=== PATIENT | female | born 1980 | race Caucasian/White ===

== ENCOUNTER 2017-12-03 06:55 | Emergency (ER) | payer BC ==
[~2017-12-03 06:55] MED LIST: ALBU8.5H IH; CIT20 PO; DICL-195 PO; DOXY-179 PO; ERYT-80 PO; HYDR-4309 PO; KET10 PO; LOR5 PO; LOR5/325 PO; MONT10TA PO; SERT-1 PO
[2017-12-03] MEDS ORDERED: ONDANSETRON 4 MG/2 ML VIAL IVP ONE ×2 (07:15→07:25)
[2017-12-03] MEDS ORDERED: NS(*) 0.9% 1000 ML BAG 1,000 ML IV ONE ×2 (07:15→07:25)
[2017-12-03] MEDS ORDERED: fentaNYL CITR 100 MCG/2 ML AMP IVP ONE ×2 (07:15→07:25)
[2017-12-03 07:25] LABS: PLATELET COUNT, AUTOMATED 213 K/uL (150-450)
--- NOTE | 2017-12-03 07:31 | ER Report ---
History and Physical Time Seen By MD: 07:01 Hx. of Stated Complaint: patient reports that she was woken up about 0230 this morning not able to breathe HPI/ROS CHIEF COMPLAINT: Right sided abdominal pain HISTORY OF PRESENT ILLNESS: 37-year-old female denies medical problems except " 1 prior blood clot, in the ankle" status post cholecystectomy 2007 in [place] presents with right upper quadrant abdominal pain worse with a deep breath radiates to the back sharp in nature and acute onset at 2 AM awoke her from sleep. She denies associated symptoms including nausea vomiting diarrhea cough fever chills or chest pain. REVIEW OF SYSTEMS: Constitutional: No fever, no chills. Eyes: No discharge. ENT: No sore throat. Cardiovascular: No chest pain, no palpitations. Respiratory: No cough, no shortness of breath. Gastrointestinal: No abdominal pain, no vomiting. Genitourinary: No hematuria. Musculoskeletal: No back pain. Skin: No rashes. Neurological: No headache. Allergies: Coded Allergies: Penicillins (Verified Allergy, Mild, 02/11/16) Home Meds Reported Medications Montelukast Sodium (SINGULAIR) 10 Mg Tablet, 1 TAB PO QDAY, TAB 02/11/16 Albuterol Sulfate 90 Mcg/Act (PROAIR HFA 90 MCG/ACT) 8.5 Gm Hfa.aer.ad, IH PRN Y for SHORTNESS OF BREATH 07/02/15 Hx Smoking: No Smoking Status: Never Smoker Exposure to Second Hand Smoke?: No Hx Substance Use Disorder: No Hx Alcohol Use: Yes Constitutional Vital Sign - Last 24 Hours 12/03/17 12/03/17 12/03/17 12/03/17 06:55 07:00 07:01 07:25 Temp 98.8 Pulse ??? 68 65 Resp 24 16 B/P (MAP) 130/83 130/83 (99) Pulse Ox 98 96 12/03/17 08:08 B/P (MAP) 117/76 (90) Physical Exam General Appearance: The patient is alert, has no immediate need for airway protection and no signs of toxicity. No acute distress Eyes: Pupils equal and round no pallor or injection. ENT, Mouth: Mucous membranes are moist. Respiratory: There are no retractions, lungs are clear to auscultation. breath sounds are diminished on the R lower lung matthews. Egophony is present in the same location. Cardiovascular: Regular rate and rhythm. No murmurs gallops or rubs Gastrointestinal: Abdomen is soft and right upper quadrant is tender, no masses , bowel sounds normal. Neurological: Normal gross exam Skin: Warm and dry, no rashes. Musculoskeletal: Neck is supple non tender. Extremities are nontender, nonswollen and have full range of motion. no edema DIFFERENTIAL DIAGNOSIS: After history and physical exam differential diagnosis was considered for renal stone, gallstone, duodenitis, perforated viscous, pneumonia, PE, ACS/FL. This is an incomplete list of diagnoses considered. Medical Decision Making Data Points Result Diagram: 12/03/17 0712 12/03/17 0712 Laboratory Hematology Test 12/03/17 07:12 12/03/17 08:04 Red Blood Count 4.87 M/uL (4.17-5.56) Mean Corpuscular Volume 86.0 fL (80.0-96.0) Mean Corpuscular Hemoglobin 30.3 pg (26.0-33.0) Mean Corpuscular Hemoglobin Concent 35.2 g/dL (32.0-36.0) Red Cell Distribution Width 13.5 % (11.5-14.5) Mean Platelet Volume 9.4 fL (7.2-11.1) Neutrophils (%) (Auto) 65.5 % (39.4-72.5) Lymphocytes (%) (Auto) 20.4 % (17.6-49.6) Monocytes (%) (Auto) 9.6 % (4.1-12.4) Eosinophils (%) (Auto) 3.7 % (0.4-6.7) Basophils (%) (Auto) 0.8 % (0.3-1.4) Nucleated RBC Relative Count (auto) 0.1 /100WBC Neutrophils # (Auto) 4.8 K/uL (2.0-7.4) Lymphocytes # (Auto) 1.5 K/uL (1.3-3.6) Monocytes # (Auto) 0.7 K/uL (0.3-1.0) Eosinophils # (Auto) 0.3 K/uL (0.0-0.5) Basophils # (Auto) 0.1 K/uL (0.0-0.1) Nucleated RBC Absolute Count (auto) 0.01 K/uL Peripheral Blood Smear No Y/N D-Dimer Quantitative (PE/DVT) < 0.27 ug/ml (0-0.50) Sodium Level 139 mmol/L (137-145) Potassium Level 3.9 mmol/L (3.5-5.0) Chloride Level 104 mmol/L (98-107) Carbon Dioxide Level 23 mmol/L (22-31) Blood Urea Nitrogen 15 mg/dl (7-18) Creatinine 0.70 mg/dl (0.52-1.04) Glomerular Filtration Rate Calc > 60.0 Random Glucose 91 mg/dl (75-110) Calcium Level 8.6 mg/dl (8.4-10.2) Total Bilirubin 1.2 mg/dl (0.2-1.3) Aspartate Amino Transf (AST/SGOT) 13 U/L (0-35) Alanine Aminotransferase (ALT/SGPT) 17 U/L (0-56) Alkaline Phosphatase 57 U/L (0-126) Troponin I < 0.012 ng/ml Total Protein 7.4 gm/dl (6.3-8.2) Albumin 4.0 g/dl (3.5-5.0) Lipase 47 U/L (23-300) Human Chorionic Gonadotropin, Qual Negative (NEGATIVE) Chemistry Test 12/03/17 07:12 12/03/17 08:04 White Blood Count 7.3 k/uL (4.5-11.0) Red Blood Count 4.87 M/uL (4.17-5.56) Hemoglobin 14.8 g/dL (12.0-16.0) Hematocrit 41.9 % (34.0-47.0) Mean Corpuscular Volume 86.0 fL (80.0-96.0) Mean Corpuscular Hemoglobin 30.3 pg (26.0-33.0) Mean Corpuscular Hemoglobin Concent 35.2 g/dL (32.0-36.0) Red Cell Distribution Width 13.5 % (11.5-14.5) Platelet Count 213 K/uL (150-450) Mean Platelet Volume 9.4 fL (7.2-11.1) Neutrophils (%) (Auto) 65.5 % (39.4-72.5) Lymphocytes (%) (Auto) 20.4 % (17.6-49.6) Monocytes (%) (Auto) 9.6 % (4.1-12.4) Eosinophils (%) (Auto) 3.7 % (0.4-6.7) Basophils (%) (Auto) 0.8 % (0.3-1.4) Nucleated RBC Relative Count (auto) 0.1 /100WBC Neutrophils # (Auto) 4.8 K/uL (2.0-7.4) Lymphocytes # (Auto) 1.5 K/uL (1.3-3.6) Monocytes # (Auto) 0.7 K/uL (0.3-1.0) Eosinophils # (Auto) 0.3 K/uL (0.0-0.5) Basophils # (Auto) 0.1 K/uL (0.0-0.1) Nucleated RBC Absolute Count (auto) 0.01 K/uL Peripheral Blood Smear No Y/N D-Dimer Quantitative (PE/DVT) < 0.27 ug/ml (0-0.50) Glomerular Filtration Rate Calc > 60.0 Calcium Level 8.6 mg/dl (8.4-10.2) Total Bilirubin 1.2 mg/dl (0.2-1.3) Aspartate Amino Transf (AST/SGOT) 13 U/L (0-35) Alanine Aminotransferase (ALT/SGPT) 17 U/L (0-56) Alkaline Phosphatase 57 U/L (0-126) Troponin I < 0.012 ng/ml Total Protein 7.4 gm/dl (6.3-8.2) Albumin 4.0 g/dl (3.5-5.0) Lipase 47 U/L (23-300) Human Chorionic Gonadotropin, Qual Negative (NEGATIVE) Coagulation Test 12/03/17 07:12 D-Dimer Quantitative (PE/DVT) < 0.27 ug/ml Urinalysis Test 12/03/17 08:04 EKG/Imaging EKG Interpretation 12/03/2017 0 6:58 AM my read: normal sinus rhythm ventricular rate of 62 normal IA QRS and QTc intervals no ST or T-wave changes to suggest ischemia or infarction ED Course/Re-evaluation ED Course Plan of care was agreed upon prior orders placed. Pain is rated 8/10. Re-evaluation Improved Decision to Disposition Date: Dec 03, 2017 Decision to Disposition Time: 08:32 Depart Departure Latest Vital Signs Vital Signs Date Time Temp Pulse Resp B/P (MAP) Pulse Ox O2 Delivery O2 Flow Rate FiO2 12/03/17 08:08 117/76 (90) 12/03/17 07:25 65 16 96 12/03/17 07:00 98.8 Impression: Primary Impression: Abdominal pain, RUQ (right upper quadrant) Condition: Improved Disposition: HOME OR SELF-CARE Referrals: DANIEL SANDERS Scripts Famotidine (PEPCID) 20 Mg Tablet 20 MG PO QDAY, #10 TAB Prov: LIZBETH DOWNS MD 12/03/17 Dicyclomine Hcl (DICYCLOMINE HCL) 20 Mg Tablet 20 MG PO QID for PAIN for 7 Days, #20 CAP Prov: LIZBETH DOWNS MD 12/03/17 Patient Instructions: Abdominal Pain (ED) LIZBETH DOWNS MD Dec 03, 2017 07:31
--- NOTE | 2017-12-03 08:23 | RADIOLOGY IMAGING REPORT ---
FACILITY: [facility] PATIENT NAME: Jennifer Rasmussen : 1980 MR: [id number] V: [id number] EXAM DATE: ORDERING PHYSICIAN: LIZBETH DOWNS TECHNOLOGIST: Location: [facility] Patient: Jennifer Rasmussen : 1980 Visit/Account:[id number] Date of Sevice: 12/03/2017 ABDOMEN/PELVIS W/O CONTRAST HISTORY: Right flank pain TECHNIQUE: Axial images were obtained through the abdomen and pelvis without intravenous contrast . One of the following dose optimization techniques was utilized in the performance of this exam: autom ated exposure control; adjustment of the mA and/or kv according to patient size; or use of iterative reconstruction technique. Specific details can be referenced in the facility's radiology CT exam oper ational policy. CONTRAST: None COMPARISON: CT abdomen/pelvis 02/01/2017 FINDINGS: Visualized lung bases: Negative. Hepatobiliary: Cholecystectomy. Spleen: Stable mild splenomegaly. Adrenals: Negative. Pancreas: Negative. Kidneys/ureters/bladder: No radiopaque urinary tract calculus. No hydronephrosis. Bowel/peritoneum/mesentery: Normal appendix. No bowel obstruction, free air or ascites. Vessels: Negative. Lymph nodes: Negative. Pelvic genitourinary: Negative. Bones/body wall: Negative. Other findings: None significant IMPRESSION: 1. Negative examination for radiopaque urinary tract calculus or hydronephrosis. 2. No other acute inflammatory process identified. 3. Stable mild splenomegaly Report Dictated By: Sudhakar George MD at 12/03/2017 8:12 AM Report E-Signed By: Sudhakar George MD at 12/03/2017 8:18 AM WSN:[id number]
[2017-12-03 08:30] VITALS: BP 116/67
[2017-12-03] MEDS ORDERED: FAMO20TA28 PO (08:31)
[2017-12-03] MEDS ORDERED: DICY20TA70 PO (08:31)
--- NOTE | 2017-12-03 17:04 | EKG ---
FACILITY: [facility] PATIENT NAME: RONALD HOLM : [id number] MR: [id number] V: [id number] EXAM DATE: ORDERING PHYSICIAN: LIZBETH DOWNS TECHNOLOGIST: SIGRID [place] Reason : Blood Pressure : / mmHG Vent. Rate : 062 BPM Atrial Rate : 062 BPM P-R Int : 112 ms QRS Dur : 082 ms QT Int : 412 ms P-R-T Axes : 006 026 040 degrees QTc Int : 418 ms Normal sinus rhythm Normal ECG No previous ECGs available Confirmed by BRIANNE MAYORGA ([id number]) on 12/04/2017 7:07:33 AM Referred By: Confirmed By:BRIANNE MAYORGA
== END 2017-12-03 08:42 | disposition home or self-care (01) ==
LOC: ER 07:13
DX: R10.11 Right upper quadrant pain (principal)
CPT/HCPCS: 74176; 81001; 83690; 84484; 84703; 85025; 85379; 93005; 96361; 96374; 96375; 99284; J2405; J3010; J7030; 82040; 82247; 82310; 82374; 82435; 82565; 82947; 84075; 84132; 84155; 84295; 84450; 84460; 84520

== ENCOUNTER → 2018-09-16 | Outpatient (REF) ==
[~2018-09-16] MED LIST changes: +DICY20TA70 PO; +FAMO20TA28 PO; -HYDR-4309 PO; +HYDR-653 PO
--- NOTE | 2018-09-16 15:28 | RADIOLOGY IMAGING REPORT ---
FACILITY: [facility] [place] PATIENT NAME: Jennifer Rasmussen : 1980 MR: [id number] V: [id number] EXAM DATE: ORDERING PHYSICIAN: SEE MAGANA TECHNOLOGIST: Location: [facility] Patient: Jennifer Rasmussen : 1980 Visit/Account:[id number] Date of Sevice: 09/16/2018 PELVIC HISTORY: Right-sided pelvic pain for years, irregular menses TECHNIQUE: Transvaginal and transabdominal ultrasound pelvis. COMPARISON: CT abdomen pelvis December 03, 2017 FINDINGS: Uterus: ; 8.4 cm length x 5 cm AP x 5 cm transverse. Myometrium: Unremarkable. Endometrium: Unremarkable; double thickness 6.8 mm. Cervix: Nabothian cysts. Ovaries: Right - 2.5 x 1.8 x 2.7 cm. By technologist notation the right ovary was difficult to image. T here appear to be two cysts the largest measuring 1.3 cm in diameter Left - not visualized Blood flow is documented in the right ovary by duplex Doppler ultrasound. Adnexa: Grossly unremarkable. Free pelvic fluid: None. IMPRESSION: By technologist notation the right ovary was difficult to image although there appear to be two cysts with the largest measuring 1.3 centers in diameter Left ovary not visualized Nabothian cysts Report Dictated By: Priscilla Stringer MD at 09/16/2018 3:20 PM Report E-Signed By: Priscilla Stringer MD at 09/16/2018 3:23 PM [id number]
== END ==
LOC: US 04:00
PROVIDERS: ATTEND Nurse Practitioner
DX: N88.8 Other specified noninflammatory disorders of cervix uteri (principal); N83.291 Other ovarian cyst, right side
CPT/HCPCS: 76830; 76856

== ENCOUNTER 2018-11-04 22:06 | Emergency (ER) | payer BC, OTHER ==
--- NOTE | 2018-11-04 22:09 | ER Report ---
History and Physical Time Seen By MD: 22:08 HPI/ROS CHIEF COMPLAINT: Abdominal pain, vomiting HISTORY OF PRESENT ILLNESS: 38-year-old female with a history of , cholecystectomy. Presents with sudden onset of crampy, severe 8/10 lower abdominal pain radiating up into the right upper quadrant. Patient notes urge to have a bowel movement but is unable to go. Patient notes fever and chills subjectively. She's had no dysuria or hematuria. Patient denies history of kidney stones. She denies consumption of bad food or exposure to ill contacts. She notes no change in her bowel habits over the last few days. REVIEW OF SYSTEMS: Respiratory: No cough, no dyspnea. Cardiovascular: No chest pain, no palpitations. Gastrointestinal: As above Musculoskeletal: No back pain. Allergies: Coded Allergies: Penicillins (Verified Allergy, Mild, 11/04/18) Home Meds Active Scripts Ondansetron 4 Mg Odt (ONDANSETRON 4 MG ODT) 4 Mg Tab.rapdis, 4 MG PO Q6H PRN for NAUSEA/VOMITING, #10 TAB Prov:RORY ORDONEZ DO 11/04/18 Hydrocodone Bit/Acetaminophen (HYDROCODON-ACETAMINOPHEN 5-325) 1 Each Tablet, 1 EACH PO Q4-6H PRN for PAIN, #10 TAB Prov:RORY ORDONEZ DO 11/04/18 Famotidine (PEPCID) 20 Mg Tablet, 20 MG PO QDAY, #10 TAB Prov:LIZBETH DOWNS MD 12/03/17 Dicyclomine Hcl (DICYCLOMINE HCL) 20 Mg Tablet, 20 MG PO QID for PAIN for 7 Days, #20 CAP Prov:LIZBETH DOWNS MD 12/03/17 Reported Medications Montelukast Sodium (SINGULAIR) 10 Mg Tablet, 1 TAB PO QDAY, TAB 02/11/16 Albuterol Sulfate 90 Mcg/Act (PROAIR HFA 90 MCG/ACT) 8.5 Gm Hfa.aer.ad, IH PRN PRN for SHORTNESS OF BREATH 07/02/15 Past Medical/Surgical History Patient has a past history of migraines, blood in stool. Patient has a surgical history of tubal ligation, cholecystectomy, Patient denies any pertinent family medical history. Reviewed Nurses Notes: Yes Old Medical Records Reviewed: Yes Hx Smoking: No Smoking Status: Never Smoker Exposure to Second Hand Smoke?: No Hx Substance Use Disorder: No Hx Alcohol Use: Yes Constitutional Vital Sign - Last 24 Hours 11/04/18 11/04/18 11/04/18 11/04/18 22:10 22:12 22:30 22:36 Temp 98.6 Pulse 77 65 Resp 17 B/P (MAP) 134/71 134/71 (92) 119/88 (98) Pulse Ox 97 96 O2 Delivery Room Air 11/04/18 11/04/18 11/04/18 11/04/18 22:41 23:00 23:11 23:16 Pulse 73 69 62 B/P (MAP) 128/64 (85) Pulse Ox 94 95 93 11/04/18 11/04/18 23:30 23:46 Pulse 78 B/P (MAP) 119/76 (90) Pulse Ox 94 Intake and Output 11/04/18 11/04/18 11/05/18 15:00 23:00 07:00 Intake Total 1000 ml Balance 1000 ml Physical Exam General Appearance: The patient is alert, has no immediate need for airway protection and no current signs of toxicity. Moderate distress, vital signs stable, afebrile, pulse ox normal Eyes: Pupils equal and round no injection. Anicteric sclera Respiratory: Chest is non tender, lungs are clear to auscultation. Cardiac: regular rate and rhythm Gastrointestinal: Abdomen is soft, mild tenderness in both lower quadrants, no rebound, guarding or masses, bowel sounds normal. Musculoskeletal: Neck: Neck is supple and non tender. No lymphadenopathy Extremities have full range of motion and are non tender. No edema, no calf tenderness Skin: No rashes or lesions. DIFFERENTIAL DIAGNOSIS: After history and physical exam differential diagnosis was considered for abdominal pain including but not limited to appendicitis, cholecystitis, gastritis and urinary tract infection. Medical Decision Making Data Points Result Diagram: 11/04/18223011/04/182230 Laboratory Hematology Test 11/04/18 22:10 11/04/18 22:31 Urine Color Straw Urine Clarity Clear Urine pH 6.0 pH (4.8-9.5) Urine Specific [place] 1.003 Urine Protein Negative mg/dL (NEGATIVE) Urine Glucose (UA) Negative mg/dL (NEGATIVE) Urine Ketones Negative mg/dL (NEGATIVE) Urine Blood Negative (NEGATIVE) Urine Nitrite Negative (NEGATIVE) Urine Bilirubin Negative (NEGATIVE) Urine Urobilinogen Negative mg/dL (0.2-1.9) Urine Leukocyte Esterase Negative (NEGATIVE) Urine RBC None /HPF (0-2/HPF) Urine WBC <1 /HPF (0-5/HPF) Urine Squamous Epithelial Cells Many /LPF (</=FEW) Urine Bacteria Negative /HPF (NONE-FEW) Urine Mucus None /HPF (NONE-FEW) Urine HCG, Qualitative Negative (NEGATIVE) Red Blood Count 4.84 M/uL (4.17-5.56) Mean Corpuscular Volume 89.0 fL (80.0-96.0) Mean Corpuscular Hemoglobin 31.3 pg (26.0-33.0) Mean Corpuscular Hemoglobin Concent 35.1 g/dL (32.0-36.0) Red Cell Distribution Width 13.3 % (11.5-14.5) Mean Platelet Volume 8.4 fL (7.2-11.1) Neutrophils (%) (Auto) 68.7 % (39.4-72.5) Lymphocytes (%) (Auto) 19.5 % (17.6-49.6) Monocytes (%) (Auto) 8.2 % (4.1-12.4) Eosinophils (%) (Auto) 3.2 % (0.4-6.7) Basophils (%) (Auto) 0.4 % (0.3-1.4) Nucleated RBC Relative Count (auto) 0.2 /100WBC Neutrophils # (Auto) 5.7 K/uL (2.0-7.4) Lymphocytes # (Auto) 1.6 K/uL (1.3-3.6) Monocytes # (Auto) 0.7 K/uL (0.3-1.0) Eosinophils # (Auto) 0.3 K/uL (0.0-0.5) Basophils # (Auto) 0.0 K/uL (0.0-0.1) Nucleated RBC Absolute Count (auto) 0.02 K/uL Sodium Level 140 mmol/L (137-145) Potassium Level 3.8 mmol/L (3.5-5.0) Chloride Level 106 mmol/L (98-107) Carbon Dioxide Level 25 mmol/L (22-31) Blood Urea Nitrogen 17 mg/dl (7-18) Creatinine 0.70 mg/dl (0.52-1.04) Glomerular Filtration Rate Calc > 60.0 Random Glucose 100 mg/dl (75-110) Calcium Level 8.7 mg/dl (8.4-10.2) Total Bilirubin 0.7 mg/dl (0.2-1.3) Aspartate Amino Transf (AST/SGOT) 14 U/L (0-35) Alanine Aminotransferase (ALT/SGPT) 23 U/L (0-56) Alkaline Phosphatase 60 U/L (0-126) Total Protein 7.1 g/dl (6.3-8.2) Albumin 4.3 g/dl (3.5-5.0) Amylase Level 48 U/L (0-110) Lipase 63 U/L (23-300) Chemistry Test 11/04/18 22:10 11/04/18 22:31 Urine Color Straw Urine Clarity Clear Urine pH 6.0 pH (4.8-9.5) Urine Specific [place] 1.003 Urine Protein Negative mg/dL (NEGATIVE) Urine Glucose (UA) Negative mg/dL (NEGATIVE) Urine Ketones Negative mg/dL (NEGATIVE) Urine Blood Negative (NEGATIVE) Urine Nitrite Negative (NEGATIVE) Urine Bilirubin Negative (NEGATIVE) Urine Urobilinogen Negative mg/dL (0.2-1.9) Urine Leukocyte Esterase Negative (NEGATIVE) Urine RBC None /HPF (0-2/HPF) Urine WBC <1 /HPF (0-5/HPF) Urine Squamous Epithelial Cells Many /LPF (</=FEW) Urine Bacteria Negative /HPF (NONE-FEW) Urine Mucus None /HPF (NONE-FEW) Urine HCG, Qualitative Negative (NEGATIVE) White Blood Count 8.2 k/uL (4.5-11.0) Red Blood Count 4.84 M/uL (4.17-5.56) Hemoglobin 15.1 g/dL (12.0-16.0) Hematocrit 43.0 % (34.0-47.0) Mean Corpuscular Volume 89.0 fL (80.0-96.0) Mean Corpuscular Hemoglobin 31.3 pg (26.0-33.0) Mean Corpuscular Hemoglobin Concent 35.1 g/dL (32.0-36.0) Red Cell Distribution Width 13.3 % (11.5-14.5) Platelet Count 275 K/uL (150-450) Mean Platelet Volume 8.4 fL (7.2-11.1) Neutrophils (%) (Auto) 68.7 % (39.4-72.5) Lymphocytes (%) (Auto) 19.5 % (17.6-49.6) Monocytes (%) (Auto) 8.2 % (4.1-12.4) Eosinophils (%) (Auto) 3.2 % (0.4-6.7) Basophils (%) (Auto) 0.4 % (0.3-1.4) Nucleated RBC Relative Count (auto) 0.2 /100WBC Neutrophils # (Auto) 5.7 K/uL (2.0-7.4) Lymphocytes # (Auto) 1.6 K/uL (1.3-3.6) Monocytes # (Auto) 0.7 K/uL (0.3-1.0) Eosinophils # (Auto) 0.3 K/uL (0.0-0.5) Basophils # (Auto) 0.0 K/uL (0.0-0.1) Nucleated RBC Absolute Count (auto) 0.02 K/uL Glomerular Filtration Rate Calc > 60.0 Calcium Level 8.7 mg/dl (8.4-10.2) Total Bilirubin 0.7 mg/dl (0.2-1.3) Aspartate Amino Transf (AST/SGOT) 14 U/L (0-35) Alanine Aminotransferase (ALT/SGPT) 23 U/L (0-56) Alkaline Phosphatase 60 U/L (0-126) Total Protein 7.1 g/dl (6.3-8.2) Albumin 4.3 g/dl (3.5-5.0) Amylase Level 48 U/L (0-110) Lipase 63 U/L (23-300) Urinalysis Test 11/04/18 22:10 Urine Color Straw Urine Clarity Clear Urine pH 6.0 pH (4.8-9.5) Urine Specific [place] 1.003 Urine Protein Negative mg/dL (NEGATIVE) Urine Glucose (UA) Negative mg/dL (NEGATIVE) Urine Ketones Negative mg/dL (NEGATIVE) Urine Blood Negative (NEGATIVE) Urine Nitrite Negative (NEGATIVE) Urine Bilirubin Negative (NEGATIVE) Urine Urobilinogen Negative mg/dL (0.2-1.9) Urine Leukocyte Esterase Negative (NEGATIVE) Urine RBC None /HPF (0-2/HPF) Urine WBC <1 /HPF (0-5/HPF) Urine Squamous Epithelial Cells Many /LPF (</=FEW) Urine Bacteria Negative /HPF (NONE-FEW) Urine Mucus None /HPF (NONE-FEW) Urine HCG, Qualitative Negative (NEGATIVE) ED Course/Re-evaluation Clinical Indication for ER IV: Hydration, IV Access ED Course Patient was admitted to an examination room. H&P was done. The differential diagnosis was considered. Patient with lower abdominal pain in both quadrants rating up the right side of her abdomen to the right upper quadrant. Patient was treated with IV fluids, Zofran, fentanyl. Patient reported no improvement of her pain. She was given Dilaudid a half milligram and Toradol 30. Patient's diagnostic studies all returned unremarkable. Her urinalysis was negative. Patient's pain was much better after the 2nd doses of medication. I see no indication for further diagnostic studies at this time. Her belly exam is unremarkable. She is advised a clear liquid diet and ibuprofen for additional inflammatory pain relief. She's given a prescription for Zofran and a few Lortab for additional pain relief. Patient advised to follow-up with primary care if unimproved in 3-5 days. Decision to Disposition Date: Nov 04, 2018 Decision to Disposition Time: 23:40 Depart Departure Latest Vital Signs Vital Signs Date Time Temp Pulse Resp B/P (MAP) Pulse Ox O2 Delivery O2 Flow Rate FiO2 11/04/18 23:46 78 94 11/04/18 23:30 119/76 (90) 11/04/18 22:10 98.6 17 Room Air Impression: Primary Impression: Abdominal pain Additional Impression: Vomiting Condition: Improved Disposition: HOME OR SELF-CARE New Scripts Ondansetron 4 Mg Odt (ONDANSETRON 4 MG ODT) 4 Mg Tab.rapdis 4 MG PO Q6H PRN for NAUSEA/VOMITING, #10 TAB Prov: RORY ORDONEZ DO 11/04/18 Hydrocodone Bit/Acetaminophen (HYDROCODON-ACETAMINOPHEN 5-325) 1 Each Tablet 1 EACH PO Q4-6H PRN for PAIN, #10 TAB Prov: RORY ORDONEZ DO 11/04/18 Patient Instructions: Abdominal Pain (ED), Clear Liquid Diet (ED) Additional Instructions: Follow clear liquid diet for 24 hours, then advance to Tim diet, bananas, rice, applesauce and toast Take ibuprofen 200 mg 3 tablets 3 times a day for pain relief Follow-up with primary care if unimproved in 3-5 days. Problem Qualifiers Primary Impression: Abdominal pain Abdominal location: lower abdomen, unspecified Qualified Codes: R10.30 - Lower abdominal pain, unspecified Additional Impression: Vomiting Vomiting type: unspecified Vomiting Intractability: unspecified Nausea presence: with nausea Qualified Codes: R11.2 - Nausea with vomiting, unspecified RORY ORDONEZ DO Nov 04, 2018 22:09
[2018-11-04] MEDS ORDERED: NS(*) 0.9% 1000 ML BAG 1,000 ML IV ONE (22:18)
[2018-11-04] MEDS ORDERED: fentaNYL CITR 100 MCG/2 ML AMP IVP ONE (22:20)
[2018-11-04] MEDS ORDERED: ONDANSETRON 4 MG/2 ML VIAL IVP ONE (22:20)
[2018-11-04 23:00] LABS: PLATELET COUNT, AUTOMATED 275 K/uL (150-450)
[2018-11-04] MEDS ORDERED: HYDROMORPHONE HCL 1 MG/ML SYRINGE IVP ONE (23:05)
[2018-11-04] MEDS ORDERED: KETOROLAC 30 MG/ML VIAL IVP ONE (23:10)
[2018-11-04 23:30] VITALS: BP 119/76
[2018-11-04] MEDS ORDERED: ACET/HYDROC 5/325MG TH ER ONLY 2 TAB/BOTTLE PO ONE (23:40)
[2018-11-04] MEDS ORDERED: ONDANSETRON 4 MG ODT TH SL ONE (23:40)
[2018-11-04] MEDS ORDERED: ONDA4TAB9 PO (23:49)
[2018-11-04] MEDS ORDERED: LOR5/325 PO (23:49)
== END 2018-11-05 00:02 | disposition home or self-care (01) ==
LOC: ER 22:17
DX: R10.30 Lower abdominal pain, unspecified (principal); R11.2 Nausea with vomiting, unspecified
CPT/HCPCS: 81001; 81025; 82150; 83690; 85025; 96361; 96374; 96375; 99284; J1170; J1885; J2405; J3010; J7030; S0119; 82040; 82247; 82310; 82374; 82435; 82565; 82947; 84075; 84132; 84155; 84295; 84450; 84460; 84520

== ENCOUNTER 2019-02-27 00:42 | Day surgery (SDC) | payer OTHER ==
[~2019-02-27] VITALS: Ht 162.6 cm; Wt 96.2 kg
[~2019-02-27 00:42] MED LIST changes: +CHOLESTYRAMINE PO; +LIDOCAINE/SOD BICARB 8.4% SYR ID ONE; +NORMOSOL R SOLN(*) 1000 ML BAG 1,000 ML IV PRN; +ONDA4TAB9 PO
[2019-02-27] MEDS ORDERED: PROPOFOL EMUL(*) 10MG/ML 20 ML 20 ML ONE ×2 (08:28→11:31)
[2019-02-27 09:33] VITALS: BP 121/70
[2019-02-27] MEDS ORDERED: LIDOCAINE/SOD BICARB 8.4% SYR ID ONE (09:40)
[2019-02-27] MEDS ORDERED: NORMOSOL R SOLN(*) 1000 ML BAG 1,000 ML IV PRN (09:40)
[2019-02-27 11:51] VITALS: BP 121/74
[2019-02-27 12:30] VITALS: BP 122/75
[2019-02-27 12:44] VITALS: BP 123/90
[2019-02-27 12:46] VITALS: BP 111/75
== END 2019-02-27 13:00 | disposition home or self-care (01) ==
LOC: OR 00:42
PROVIDERS: ATTEND Internal Medicine Gastroenterology
DX: K64.9 Unspecified hemorrhoids (principal); K57.30 Diverticulosis of large intestine without perforation or abscess without bleeding
CPT/HCPCS: 00813; 43239; 45380; 88305; 88313; 88342; J2704